=== PATIENT | female | born 1985 | race American Indian/Alaskan Native ===

== ENCOUNTER 2016-12-08 10:15 | Emergency (ER) | payer OTHER ==
[2016-12-08 10:24] VITALS: BP 109/71
[2016-12-08] MEDS ORDERED: FLEXERIL PO ONE (11:48)
[2016-12-08] MEDS ORDERED: NORCO PO ONE (11:48)
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
== END 2016-12-08 12:43 | disposition home or self-care (01) ==
LOC: ED 10:15
DX: M79.642 Pain in left hand (principal)
CPT/HCPCS: 99282